=== PATIENT | female | born 1965 | race African-American/Black ===

== ENCOUNTER → 2018-09-16 | Outpatient (CLI) | payer OTHER ==
[~2018-09-16] MED LIST: BIOTIN5 MG; ESTROVEN REGU400 MCG; FLEXERIL PO; NORCO 5-325 TA1 EACH PO; VIT B12; VITAMIN B-12100 MCG; VITAMIN D-32000 UNIT; WOMEN'S DAILY1 EAC3
== END ==
LOC: RAD 01:20
DX: Z12.31 Encounter for screening mammogram for malignant neoplasm of breast (principal)